=== PATIENT | female | born 1975 | race Caucasian/White ===

== ENCOUNTER → 2017-03-28 | Day surgery (SDC) | payer OTHER ==
[~2017-03-28] VITALS: Ht 175.3 cm; Wt 66.3 kg
[~2017-03-28] MED LIST: ARTIFICIAL TEARS OPTH OINT 3.5 APPLIC/3.5 GM TUBO ONE; BACITRACIN OPHT OINT 3.5 GM TUBO ONE; BACITRACIN TOP OINT 15 GM TUBE ONE; BUPIVACAINE/EPINEPHRINE 0.25% 50 ML VIAL ONE; CHLORHEXIDINE GLUCONATE 2 % 1 PACK (2 CLOTHS) TOPICAL PRN; DICL75 PO; DO NOT ADM ANY ANTICOAGULANT DRUGS PRN; FAMOTIDINE 20 MG/2 ML VIAL ONE; INSULIN HUMAN REGULAR 1,000 UNITS/10 ML VIAL SQ PRN; LACTATED RINGER'S 1000 ML INJ 1,000 ML IV ONE; LACTATED RINGER'S 1000 ML IV PRN; LIDOCAINE 1%/EPINEPHrine 1:100,000 SOLN 30 ML VIAL ONE; METOPROLOL TARTRATE 25 MG TAB PO PRN; MIDAZOLAM HCL 2 MG/2 ML VIAL ONE; ONDANSETRON HCL 4 MG/2 ML VIAL IV PUSH ONE; POVIDONE IODINE 5% (ANTISEPSIS KIT) 4 APPLICATIONS EACH NARE PRN; PROPOFOL 200 MG/20 ML AMP IV ONE; SODIUM BICARBONATE 8.4% INJ 0 ML ONE; SODIUM CHLORID 0.9% 500 ML IV PRN; TRAM50 PO; ceFAZolin 2 GM PREMIX 50 ML IV SCH; ePHEDrine/NS 25 MG/5 ML SYR IV ONE; oxyCODONE/ACETAMINOPHEN 5 MG/325 MG TAB PO PRN
[2017-03-28 10:14] VITALS: BP 116/70; PULSE 66; RESP 16; TEMP 97.1; O2SAT 99
--- NOTE | 2017-03-29 23:11 | MP ---
cc: CHESTER TEMPLETON M.D. DATE OF SURGERY: 03/28/2017 PREOPERATIVE DIAGNOSIS: Right side upper lip infiltrative basal cell carcinoma. POSTOPERATIVE DIAGNOSIS Right side upper lip infiltrative basal cell carcinoma. OPERATION Excision basal cell carcinoma right side upper lip frozen section and local advancement closure. SURGEON Dr. Templeton. ANESTHESIA General INDICATIONS This is a 42-year-old white female with biopsy-proven infiltrative basal cell carcinoma, biopsy was done by program engineer back in November. 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 The one on the right side is a basal cell carcinoma. The patient was explained the overall nature of excision and frozen section to confirm the margins. The reconstruction of the lip was done with advancing local tissue from all sides, particularly that the location of the lesion is almost in the center of the right side upper lip and takes out about 40% of the skin, although it is away from the vermilion border. The possibility that some local deformity will remain between the right and the left and possibility of future recurrence and further treatment was discussed. The patient is prepared to go with the surgery. At the present time, a skin graft is not being considered in order to avoid a cosmetic appearance between the two sides, however, it may become necessary in future or a more involved reconstruction may be needed. PROCEDURE The patient was brought to the operating room, was given supine position. Anesthesia was started. Prep and drape had been done. The time-out was called and completed. The area was examined under the OR lights. It was noted that the outline of the biopsy scar is approximately 6 cm vertical, approximately 8 cm transverse. A 2 mm margin was taken on all sides and then a second small skin lesion was noted about the size of a pin head that was close to the susie border. An outline was made around the lesion to include it in the final closure if need be. The area was injected with lidocaine 1% with epi. First a superficial have biopsy was done of the new skin area identified. It was sent separately for frozen section. The main lesion was excised only down to the underlying dermis leaving the orbicularis makayla unaffected. The specimen was suture marked superior sent for frozen section. Hemostasis was completed with low power Bovie and several temporary sutures were tried to look at the overall distortion of the anatomic landmarks. The frozen section report indicated the small shave biopsy had no malignancy. The main lesion scar had clear borders and the deep margins. The closure was then started from moving tissue from all sides with separate sutures in order to prevent a deformity on a particular given area rather split the deformity in all three ways, both towards the nasolabial fold, towards the vermilion border and slightly towards the deep philtrum. The first two sutures were placed to make the vertical height of the lip slightly more prominent and then the last three sutures were used at an angle to compress it back up and create more of a horizontal spacing as well. The overall closure was more in a star design with the very minimal change on the lip symmetry. The sutures used were Vicryl and Prolene fine sutures. The area was cleaned and Steri-Strips were applied with Mastisol. No further dressing was needed. The patient remained stable. Intraoperative blood loss less than a couple of cc. No complications. signed, not fully reviewed MD MADHU Gamez/TORRES /9:25 AM /10:51 PM CARITO
== END | disposition home or self-care (01) ==
LOC: ESDC 05:49
PROVIDERS: ATTEND Plastic Surgery
DX: L57.8 Other skin changes due to chronic exposure to nonionizing radiation (principal); K13.0 Diseases of lips; Z85.828 Personal history of other malignant neoplasm of skin; Z87.891 Personal history of nicotine dependence
CPT/HCPCS: 00300; 14060; 88305; 88331; J0690; J2250; J2405; J3010; J7120